=== PATIENT | female | born 1955 | race Caucasian/White ===

== ENCOUNTER → 2023-09-11 09:03 | Outpatient (REF) | payer OTHER, SELFPAY | LOC: HWWDC 09:03 | PROVIDERS: ATTENDING PHYSICIAN Nurse Practitioner Family; REFERRING PHYSICIAN Obstetrics & Gynecology | DX: Z12.31 Encounter for screening mammogram for malignant neoplasm of breast (principal) | CPT/HCPCS: 77063; 77067 ==

== ENCOUNTER 2025-02-27 00:26 | Emergency (ER) | payer OTHER, SELFPAY ==
[2025-02-27 00:29] VITALS: BP 132/88
[2025-02-27 00:57] VITALS: BP 144/91
[2025-02-27 00:58] VITALS: BMI 19.7
--- NOTE | 2025-02-27 01:03 | ED.GENMED ---
History of Present Illness
General
Chief Complaint: Flank Pain
Source: patient
Exam Limitations: none
Time Seen by Provider: 02/27/25 00:49
History of Present Illness
History of Present Illness:
69yoF with no significant past medical history presenting for evaluation of flank pain. Patient noticed dark urine while at work this evening. She started to experience pain in the suprapubic region around 6:30 PM. Pain then started to radiate to
the right flank. She thought she may have a UTI so took a dose of leftover antibiotic that she had from a prior sinus infection. She also took a dose of Tylenol but pain continued to worsen so she decided to come to the ED. She is also having
nausea and had a small episode of vomiting. No issues with bowel movements. No chest pain or shortness of breath.
Past History
Past History
ED Past Medical History: Psychiatric (alcoholism)
ED Past Surgical History:
Social History
Tobacco: Non-smoker
Personal:
Living: with family
Employment: Not employed
Phy Exam
Physical Exam
Physical Exam:
Appears uncomfortable, non-toxic
General Physical Exam
General Presentation: well appearing
General Skin: warm and dry
General Habitus: normal
General Mental: alert
ENT Exam
ENT Exam: normocephalic
Pulmonary Exam
Pulmonary Exam: no respiratory distress
Gastrointestinal Exam
Gastrointestinal Exam: soft, non distended, cva tenderness, tender and other (+RLQ tenderness. +R CVA tenderness.)
Neurological Exam
Neurological Exam: alert
[place] Coma Scale
Eye Opening: Spontaneous
Verbal Response: Oriented
Motor Response: Obeys Commands
GCS Total Score: 15
Skin Exam
Skin Exam: normal color and warm/dry
Psychiatric Exam
Psychiatric Exam: normal mood/affect
Course
Orders/Labs/Results
Orders:
Orders
02/27/25 01:00
Urinalysis Reflex To Culture Urgent
Date Specimen was Collected: 02/27/25
Time Specimen was Collected: 00:59
Urine Microscopic Reflex Cult Urgent
02/27/25 01:02
CT Abd/pel Without Iv Or Oral Urgent
Comment:
Reason For Exam: R flank pain
0.9% Sodium Chloride 1000 ml [Nss] 1,000 ml IV BOLUS
Ketorolac [Toradol] 15 mg IV NOW STA
02/27/25 01:10
Complete Blood Count/With Diff Urgent
Comprehensive Metabolic Panel Urgent
02/27/25 02:26
Ketorolac [Toradol] 15 mg IV NOW STA
Tamsulosin [Flomax] 0.4 mg PO NOW STA
Abnormal Lab Results
02/27/25 02/27/25
01:00 01:10
RBC 4.17 L 10^6/uL
(4.20-5.40)
Absolute Neuts (auto) 6.7 H 10^3/uL
(1.4-6.5)
Absolute Lymphs (auto) 0.9 L 10^3/uL
(1.2-3.4)
Neutrophils % 86.4 H %
(42.2-75.2)
Lymphocytes % 11.0 L %
(20.5-51.1)
Sodium 134 L mmol/L
(135-145)
BUN 20 H mg/dl
(7-17)
Glucose 158 H mg/dl
(70-99)
Urine Ketones 3+ A
(Negative)
Ur Occult Blood Reflex 4+ A
(Negative)
Urine RBC 70-80 A /HPF
(0-2)
Urine Bacteria (Reflex) Few A
(Negative)
Urine Albumin (Reflex) 1+ A
(Neg - Trace)
02/27/25 01:10
02/27/25 01:10
Vital Signs
Initial and Last Documented VS:
Initial Vital Signs
Temp Pulse Resp BP Pulse Ox
99.2 F 100 20 132/88 99
02/27/25 00:29 02/27/25 00:29 02/27/25 00:29 02/27/25 00:29 02/27/25 00:29
Last Documented Vital Signs
Temp Pulse Resp BP Pulse Ox
99.2 F 100 20 142/99 99
02/27/25 00:29 02/27/25 00:29 02/27/25 00:29 02/27/25 02:36 02/27/25 01:19
MDM/Problems Addressed
Differential Diagnosis Includes:
69yoF here with R flank pain radiating to RLQ that began this evening. Also having dark urine. VSS. She appears uncomfortable due to pain but is non-toxic. R CVA and RLQ tenderness on exam. Differential diagnosis includes but is not limited to:
Kidney stone, pyelonephritis, UTI, appendicitis, doubt but consider AAA
Initial ED plan: Check CBC, CMP, UA, and CT abdomen without contrast. IV Toradol and fluid bolus for symptoms.
*Pulse Oximetry
SaO2: 99
Oxygen Mode of Delivery: Room air
Patient hypoxic: no (99%)
*Critical Care Note
Total Time (30-74mins, 75-104mins- exclusive of procedures): Not Applicable
Update Note
Update Note:
Imaging shows a 4 mm stone in the distal right ureter with mild to moderate hydro. Microscopic hematuria on urinalysis without signs of infection. White count and renal function normal. No indication for hospitalization. Supportive care
discussed including urine straining, hydration, and Flomax. Prescriptions provided for Zofran and oxycodone. Advised follow-up with urology and ED return precautions reviewed. Patient discharged in stable condition.
ED Attending Note
-
Portions of this chart may have been created with voice recognition software.� Occasional wrong word or��sound alike� substitutions may have occurred due to the inherent limitations of voice recognition software.
Discharge Plan
Departure
Patient Disposition: Home (Routine Discharge)
Date of Disposition: 02/27/25
Time of Disposition: 02:26
Patient with high blood pressure during this ER visit?: Yes
Discharge Problem:
Calculus of distal right ureter
Instructions: Kidney Stones (DC), How to Strain Your Urine
Prescriptions:
New
tamsulosin [Flomax] 0.4 mg capsule
0.4 mg PO HS Qty: 7 0RF
ondansetron 4 mg tablet,disintegrating
4 mg PO Q6H PRN (Reason: nausea and vomiting) Qty: 20 0RF
oxycodone 5 mg tablet
5 mg PO Q6H PRN (Reason: Pain) Qty: 12 0RF
No Action
pantoprazole 40 MG tablet,delayed release (DR/EC)
40 mg PO DAILY 0RF
gabapentin 300 MG capsule
600 mg PO TID 0RF
multivitamin with folic acid [Tab-A-Oscar] 1 TABLET tablet
1 tab PO DAILY 0RF
potassium chloride [Klor-Con M20] 20 MEQ tablet,ER particles/crystals
20 meq PO DAILY 0RF
Referrals:
Amarilys Fragoso CRNP [Family Provider, Family Practice]
Rogerio Mims MD [Active, Urology]
Stand Alone Forms: Return to Work
Activity Restrictions/Additional Instructions:
Take Flomax and strain urine until stone has passed. Drink plenty of fluids and stay hydrated.
Take Tylenol and ibuprofen as needed. Take oxycodone only as needed for severe breakthrough pain.
Please call Saturday morning to schedule a follow-up with urology. Return to the ER with any worsening symptoms including uncontrolled pain or fevers.
Interventions
Interventions:
*Risk Screen - Suicide Last Done: 02/27/25 00:29
*General Assessment Last Done: 02/27/25 00:29
*Neglect/Abuse Screening Last Done: 02/27/25 00:29
*ED- Fall Risk Assessment Last Done: 02/27/25 01:17
*ED COVID-19 Vaccine History Last Done: 02/27/25 01:17
EX-Rssczp-Mvwtcrtqsv Assessment Last Done: 02/27/25 01:17
ED-Female Genitourinary Assessment Last Done: 02/27/25 01:17
Discharge Date and Time
Print Language: TUNISIAN
[2025-02-27] MEDS: NSS 1000 IV (01:08)
[2025-02-27] MEDS: TORADOL 15 MG IV ×2 (01:13→02:31)
[2025-02-27 01:27] LABS: Urine Character Clear (Clear)
[2025-02-27 01:32] LABS: Hematocrit 37.5 % (37.0-47.0); Hemoglobin 12.7 g/dL (12.0-16.0); Mean Corp Hgb Conc. 33.9 g/dL (33.0-37.0); Mean Corpuscular Volume 89.9 fL (81.0-99.0); Nucleated Red Blood Cells % 0 %; Platelet Count 239 10^3/uL (130-400); Red Cell Dist. Width 12.0 % (11.5-14.5)
[2025-02-27 01:38] LABS: Urine Red Blood Cell 70-80 /HPF (0-2); Urine White Cell 0-2 /HPF (0-5)
[2025-02-27 01:58] LABS: ALT (SGPT) 28 U/L (0-35); AST (SGOT) 30 U/L (14-36); Albumin 4.5 g/dl (3.5-5.0); Alkaline Phosphatase 60 U/L (38-126); Blood Urea Nitrogen 20 mg/dl (7-17); Calcium 9.4 mg/dl (8.4-10.2); Carbon Dioxide 25 mmol/L (22-30); Chloride 103 mmol/L (98-107); Estimated Creatinine Clearance 54 ml/min; Glucose 158 mg/dl (70-99); Potassium 4.7 mmol/L (3.5-5.1); Sodium 134 mmol/L (135-145); Total Protein 6.9 g/dl (6.3-8.2); eGFR > 60.00
[2025-02-27] MEDS: FLOMAX 0.4 MG PO (02:31)
[2025-02-27 02:36] VITALS: BP 142/99
== END 2025-02-27 03:00 | disposition home or self-care (01) ==
LOC: EMR 00:26
PROVIDERS: Physician Assistant; EMERGENCY PHYSICIAN Emergency Medicine; FAMILY PHYSICIAN Nurse Practitioner Family
DX: N13.2 Hydronephrosis with renal and ureteral calculous obstruction (principal); R11.2 Nausea with vomiting, unspecified
CPT/HCPCS: 96374; 96375; 96361; 99284; 74176; 80053; 81003; 81015; 85025

== ENCOUNTER → 2025-05-21 09:32 | Outpatient (REF) | payer OTHER, SELFPAY | LOC: HWWDC 09:32 | PROVIDERS: ATTENDING PHYSICIAN Obstetrics & Gynecology; FAMILY PHYSICIAN Family Medicine | DX: Z12.31 Encounter for screening mammogram for malignant neoplasm of breast (principal); Z78.0 Asymptomatic menopausal state | CPT/HCPCS: 77063; 77067; 77080 ==